=== PATIENT | male | born 1935 | race Native Hawaiian/Other Pacific Islander ===

== ENCOUNTER 2019-09-03 22:00 | Inpatient (IN) | payer OTHER ==
[~2019-09-03] VITALS: Ht 170.2 cm; Wt 60.4 kg
[2019-09-03 22:13] VITALS: BP 98/51; TEMP 98.1
[2019-09-03] MEDS ORDERED: METO25TA4 PO (22:15)
[2019-09-03] MEDS ORDERED: QUETIAPINE25 MG PO (22:15)
[2019-09-03] MEDS ORDERED: LISI5TAB10 PO (22:15)
[2019-09-03 22:25] LABS: PLATELET COUNT 231 K/uL (142-355)
[2019-09-03 22:36] LABS: POTASSIUM 4.3 mmol/L (3.6-5.2); SODIUM 136 mmol/L (136-145)
[2019-09-03 23:17] LABS: PARTIAL THROMBOPLASTIN TIME 27.6 SECONDS (24.5-33.6)
[2019-09-04 02:27] VITALS: BP 119/65; TEMP 97.7; Ht 170.2 cm; Wt 60.4 kg
[2019-09-04 04:00] VITALS: BP 95/43; TEMP 97.6
[2019-09-04 08:00] VITALS: BP 115/71; TEMP 97.6
[2019-09-04 12:00] VITALS: BP 142/76; TEMP 96.9
[2019-09-04 16:00] VITALS: BP 141/69; TEMP 98.8
[2019-09-04 20:00] VITALS: BP 138/79; TEMP 97.7
[2019-09-05] VITALS: BP 135/87; TEMP 98
[2019-09-05 04:00] VITALS: BP 141/88; TEMP 97.8
[2019-09-05 05:15] LABS: PLATELET COUNT 304 K/uL (142-355)
[2019-09-05 05:30] LABS: POTASSIUM 4.4 mmol/L (3.6-5.2)
[2019-09-05 08:00] VITALS: BP 131/77; TEMP 97.3
[2019-09-05 12:00] VITALS: BP 100/74; TEMP 97.6
[2019-09-05 16:00] VITALS: BP 125/75; TEMP 98.3
[2019-09-05 20:00] VITALS: BP 133/92; TEMP 97.7
[2019-09-06] VITALS: BP 118/75; TEMP 97.8
[2019-09-06 03:56] VITALS: BP 113/62; TEMP 98.1
[2019-09-06 05:08] LABS: PLATELET COUNT 268 K/uL (142-355)
[2019-09-06 05:26] LABS: POTASSIUM 4.2 mmol/L (3.6-5.2)
[2019-09-06 08:00] VITALS: BP 113/67; TEMP 97.5
[2019-09-06 12:00] VITALS: BP 124/52; TEMP 97.5
[2019-09-06 16:00] VITALS: BP 167/80; TEMP 97.4
[2019-09-06 20:00] VITALS: BP 155/62; TEMP 98
[2019-09-07] VITALS: BP 105/63; TEMP 98.2
[2019-09-07 04:00] VITALS: BP 134/84; TEMP 97.7
[2019-09-07 08:00] VITALS: BP 133/80; TEMP 97.5
[2019-09-07 12:00] VITALS: BP 114/65; TEMP 98
[2019-09-07 16:00] VITALS: BP 168/66; TEMP 98.2
[2019-09-07 20:00] VITALS: BP 131/74; TEMP 98.4
[2019-09-08] VITALS (7 sets, daily range): BP systolic 94–118; BP diastolic 62–88; TEMP 97.6–98.4
[2019-09-08 08:24] LABS: PLATELET COUNT 349 K/uL (142-355)
[2019-09-08 08:32] LABS: POTASSIUM 4.6 mmol/L (3.6-5.2); SODIUM 141 mmol/L (136-145)
[2019-09-09 04:00] VITALS: BP 102/61; TEMP 98.6
[2019-09-09 08:00] VITALS: BP 116/66; TEMP 97.6
[2019-09-09 12:00] VITALS: BP 128/66; TEMP 98
[2019-09-09 16:00] VITALS: BP 130/73; TEMP 97.6
[2019-09-09 19:47] VITALS: BP 129/71; TEMP 98.3
[2019-09-09 23:47] VITALS: BP 127/64; TEMP 98
[2019-09-10 04:01] VITALS: BP 124/77; TEMP 98.2
[2019-09-10 05:23] LABS: PLATELET COUNT 308 K/uL (142-355)
[2019-09-10 05:37] LABS: POTASSIUM 5.1 mmol/L (3.6-5.2)
[2019-09-10 08:00] VITALS: BP 133/68; TEMP 97.4
[2019-09-10 12:00] VITALS: BP 116/61; TEMP 98.3
[2019-09-10 16:00] VITALS: BP 119/70; TEMP 97.5
[2019-09-10 20:24] VITALS: BP 122/62; TEMP 98
[2019-09-11] VITALS: BP 109/59; TEMP 97.7
[2019-09-11 04:00] VITALS: BP 120/68; TEMP 98.1
[2019-09-11 08:00] VITALS: BP 126/73; TEMP 97.7
== END 2019-09-11 10:30 | disposition home or self-care (01) | DRG 190 ==
LOC: ED 22:00 → MED/SURG 22:30
PROVIDERS: Family Medicine; Hospitalist; Internal Medicine; ADMIT Family Medicine
DX: J44.1 Chronic obstructive pulmonary disease with (acute) exacerbation (principal); J16.8 Pneumonia due to other specified infectious organisms; I48.91 Unspecified atrial fibrillation; R73.9 Hyperglycemia, unspecified; I10 Essential (primary) hypertension; I25.10 Atherosclerotic heart disease of native coronary artery without angina pectoris; G47.09 Other insomnia
CPT/HCPCS: 36415; 36416; 36600; 80053; 80162; 82550; 82805; 83036; 83605; 83880; 84439; 84443; 84484; 85007; 85027; 85379; 85610; 85730; 87040; 90686; 90732; 93005; 94664; 94668; 94760; 96360; 96365; 96366; 96375; 99284; J1650; J1940; J1956; J2920; J2930

== ENCOUNTER 2019-10-31 15:44 | Outpatient (CLI) | payer OTHER ==
[~2019-10-31 15:44] MED LIST: LISI5TAB10 PO; METO25TA4 PO; QUETIAPINE25 MG PO
== END 2019-10-31 20:14 | disposition home or self-care (01) ==
LOC: RAD 15:44
DX: J18.9 Pneumonia, unspecified organism (principal)

== ENCOUNTER 2020-04-22 09:46 | Emergency (ER) | payer OTHER ==
[~2020-04-22] VITALS: Ht 170.2 cm; Wt 60.3 kg
[2020-04-22 09:56] VITALS: TEMP 98
[2020-04-22 11:13] VITALS: BP 157/53
== END 2020-04-22 11:13 | disposition home or self-care (01) ==
LOC: ED 09:46
DX: R04.2 Hemoptysis (principal); Z98.890 Other specified postprocedural states
CPT/HCPCS: 99282

== ENCOUNTER 2020-07-08 13:47 | Emergency (ER) | payer OTHER ==
[~2020-07-08] VITALS: Ht 170.2 cm; Wt 60.3 kg
[2020-07-08 15:03] LABS: PLATELET COUNT 189 K/uL (142-355)
[2020-07-08 15:12] LABS: POTASSIUM 5.3 mmol/L (3.6-5.2); SODIUM 140 mmol/L (136-145)
== END 2020-07-08 16:57 | disposition home or self-care (01) ==
LOC: ED 13:47
PROVIDERS: Emergency Medicine Emergency Medical Services
DX: J44.1 Chronic obstructive pulmonary disease with (acute) exacerbation (principal); C34.90 Malignant neoplasm of unspecified part of unspecified bronchus or lung
CPT/HCPCS: 80053; 83605; 84484; 85027; 87040; 96360; 96375; 99284; J1100

== ENCOUNTER 2020-09-24 09:09 | Emergency (ER) | payer OTHER ==
[~2020-09-24] VITALS: Ht 170.2 cm; Wt 63.5 kg
[2020-09-24 09:09] VITALS: TEMP 97.7
[2020-09-24] MEDS ORDERED: APIX1TAB PO (09:17)
[2020-09-24] MEDS ORDERED: DIGITEK0.125 MG PO (09:17)
[2020-09-24] MEDS ORDERED: ANORO ELLIPTA 61 AER INH (09:18)
[2020-09-24] MEDS ORDERED: IPRAAER INH (09:19)
[2020-09-24] MEDS ORDERED: PANTOPRAZOLE 40MG TA PO (09:19)
[2020-09-24] MEDS ORDERED: PRED10TA27 PO (09:19)
[2020-09-24 09:25] VITALS: BP 151/77
== END 2020-09-24 09:28 | disposition home or self-care (01) ==
LOC: ED 09:09
DX: R06.02 Shortness of breath (principal); I10 Essential (primary) hypertension
CPT/HCPCS: 99281

== ENCOUNTER 2020-10-15 11:44 | Outpatient (CLI) | payer OTHER ==
[~2020-10-15 11:44] MED LIST changes: +ANORO ELLIPTA 61 AER INH; +APIX1TAB PO; +DIGITEK0.125 MG PO; +IPRAAER INH; +PANTOPRAZOLE 40MG TA PO; +PRED10TA27 PO
== END 2020-10-15 21:34 | disposition home or self-care (01) ==
LOC: LABW 11:44
PROVIDERS: ATTEND Nurse Practitioner Adult Health
DX: I48.0 Paroxysmal atrial fibrillation (principal); Z79.899 Other long term (current) drug therapy
CPT/HCPCS: 36415; 80162

== ENCOUNTER 2020-11-19 10:52 | Outpatient (CLI) | payer OTHER ==
[2020-11-19 13:27] LABS: POTASSIUM 4.1 mmol/L (3.6-5.2)
[2020-11-19 14:57] LABS: PLATELET COUNT 192 K/uL (142-355)
== END 2020-11-19 20:13 | disposition home or self-care (01) ==
LOC: LABW 10:52
PROVIDERS: ATTEND Internal Medicine
DX: I10 Essential (primary) hypertension (principal); Z79.899 Other long term (current) drug therapy
CPT/HCPCS: 36415; 80053; 80061; 80162; 81000; 84439; 84443; 85027

== ENCOUNTER 2020-11-29 10:39 | Outpatient (CLI) | payer OTHER | END 2020-11-29 21:38 | disposition home or self-care (01) | LOC: INF 10:39 | PROVIDERS: ATTEND Internal Medicine | DX: Z23 Encounter for immunization (principal) | CPT/HCPCS: 96372 ==

== ENCOUNTER 2020-12-17 15:14 | Outpatient (CLI) | payer OTHER | END 2020-12-17 21:35 | disposition home or self-care (01) | LOC: INF 15:14 | PROVIDERS: ATTEND Internal Medicine | DX: Z23 Encounter for immunization (principal) | CPT/HCPCS: 96372 ==